=== PATIENT | female | born 1950 | race Caucasian/White ===

== ENCOUNTER 2020-12-15 08:00 | Outpatient (CLI) | payer MEDICARE, OTHER | END 2020-12-15 23:59 | disposition home or self-care (01) | LOC: LAB.R 08:00 | PROVIDERS: ATTEND Family Medicine | DX: U07.1 COVID-19 (principal) ==

== ENCOUNTER 2021-01-20 11:10 | Observation (INO) | payer MEDICARE, OTHER ==
--- OUTSIDE RECORDS SUMMARY | 2021-01-20 11:14 | EXTERNAL MEDICAL SUMMARY RPT | Continuity of Care Document ---
:1950 Demographics Phone Unavailable Preferred Language French Marital Status Unknown Muslim Affiliation Unknown Race Unknown Ethnic Group Unknown Author Organization [place] Address [address] [place] [address] Phone Care Team Providers Name Role Phone ELECTRICAL ENGINEERING TECHNOLOGIST Unavailable Unavailable Registrar Unavailable Unavailable RN REHABILITATION Unavailable Unavailable MD Unavailable Unavailable Garcia Unavailable Unavailable Allergies Encounters Medications date description facility [id number] Nitroglycerin 0.4 MG Sublingual Tablet [facility] [id number] [facility] All [id number] [facility] All [id number] [facility] All [id number] [facility] All [id number] [facility] All [id number] [facility] All [id number] [facility] All [id number] [facility] All [id number] [facility] All [id number] [facility] All [id number] [facility] All [id number] [facility] All [id number] [facility] All [id number] [facility] All [id number] [facility] All [id number] [facility] All [id number] [facility] All [id number] [facility] All [id number] [facility] All [id number] [facility] All [id number] [facility] All [id number] [facility] All [id number] [facility] All [id number] [facility] All Problems date description facility [id number] Total score? All [id number] Acute upper respiratory infection, unsp ecified All [id number] Never smoker All [id number] Cough All 34760714 Acute upper respiratory infections of u nspecified site All [id number] Details of drug misuse behavior All 10038447 Upper respiratory infection All 32327391 Tobacco smoking status NHIS All [id number] COVID19 Testing All 39333035 Alcohol use All Procedures date description facility [id number] [facility] Results test status date ordered by attending specimen wesly e _2019NCoV_COVID-19_Lab unknown [id number] unknown unknown unknown _Test_Result_Text_ COVID-19_REFERENCE_TES unknown [id number] unknown unknown unknown T T unknown [id number] unknown unknown unknown _2019NCoV_COVID-19_Lab unknown [id number] unknown unknown unknown _Test_Result_Text_ COVID-19_REFERENCE_TES unknown [id number] unknown unknown unknown T T unknown [id number] unknown unknown unknown facility observation status value reference units lab abnor mal line range code notes All _2019NCoV_CO unknown POSITIVE unknown _6659 unkno wn unknown VID-19_Lab_Te 97 st_Result_Tex t_ All COVID-19_REF unknown POSITIVE unknown COVID unkno wn unknown ERENCE_TEST 19.REF All T unknown POSITIVE unknown COVID unknown un known -19 All _2019NCoV_CO unknown POSITIVE unknown _6659 unkno wn unknown VID-19_Lab_Te 97 st_Result_Tex t_ All COVID-19_REF unknown POSITIVE unknown COVID unkno wn unknown ERENCE_TEST 19.REF All T unknown POSITIVE unknown COVID unknown un known -19 Vital Signs date measurement value source 20201215 weight_standard 198 lb 20201215 weight_metric 89.81 kg 20201215 temperature_standard 97.8 F 20201215 temperature_metric 36.56 C 20201215 respiration_rate 17 /min 20201215 height_standard 65 in 20201215 height_metric 165.1 cm 20201215 heart_rate 62 /min 20201215 heart_rate 61 /min 20201215 BP_systolic 138 mm[Hg] 72883970 BP_diastolic 80 mm[Hg] 20201215 BMI 33.07 kg/m2 20201215 weight_standard 198 lb 20201215 weight_metric 89.81 kg 20201215 temperature_standard 97.8 F 20201215 temperature_metric 36.56 C 20201215 respiration_rate 17 /min 20201215 height_standard 65 in 20201215 height_metric 165.1 cm 20201215 heart_rate 62 /min 20201215 heart_rate 61 /min 20201215 BP_systolic 138 mm[Hg] 28205102 BP_diastolic 80 mm[Hg] 20201215 BMI 33.07 kg/m2 20201215 weight_standard 198 lb 20201215 weight_metric 89.81 kg 20201215 temperature_standard 97.8 F 20201215 temperature_metric 36.56 C 20201215 respiration_rate 17 /min 20201215 height_standard 65 in 20201215 height_metric 165.1 cm 20201215 heart_rate 62 /min 20201215 heart_rate 61 /min 20201215 BP_systolic 138 mm[Hg] 28778699 BP_diastolic 80 mm[Hg] 20201215 BMI 33.07 kg/m2 20201215 weight_standard 198 lb 20201215 weight_metric 89.81 kg 20201215 temperature_standard 97.8 F 20201215 temperature_metric 36.56 C 20201215 respiration_rate 17 /min 20201215 height_standard 65 in 20201215 height_metric 165.1 cm 20201215 heart_rate 62 /min 20201215 heart_rate 61 /min 20201215 BP_systolic 138 mm[Hg] 20201215 BP_diastolic 80 mm[Hg] 20201215 BMI 33.07 kg/m2 20210113 weight_standard 181.99 lb 20210113 weight_metric 82.55 kg 20210113 temperature_standard 98.7 F 20210113 temperature_metric 37.06 C 20210113 respiration_rate 16 /min 20210113 height_standard 65 in 20210113 height_metric 165.1 cm 20210113 heart_rate 62 /min 20210113 BP_systolic 175 mm[Hg] 20210113 BP_diastolic 78 mm[Hg] 20210113 BMI 30.2 kg/m2
--- OUTSIDE RECORDS SUMMARY | 2021-01-20 11:16 | EXTERNAL MEDICAL SUMMARY RPT | Continuity of Care Document ---
:1950 Demographics Phone Unavailable Preferred Language Polish Marital Status Unknown Alevism Affiliation Unknown Race Unknown Ethnic Group Unknown Author Organization [place] Address [address] [place] [address] Phone Care Team Providers Name Role Phone Registrar Unavailable Unavailable MD Unavailable Unavailable REHABILITATION SERVICES COUNSELOR Unavailable Unavailable SHOE REPAIRMAN Unavailable Unavailable Garcia Unavailable Unavailable Allergies Encounters Medications date description facility [id number] Nitroglycerin 0.4 MG Sublingual Tablet [facility] [id number] [facility] All [id number] [facility] All [id number] [facility] All [id number] [facility] All [id number] [facility] All [id number] [facility] All [id number] [facility] All [id number] [facility] All [id number] ASP[facility] All [id number] [facility] All [id number] [facility] All [id number] AT[facility]VASTATIN [facility] All [id number] [facility] All [id number] AT[facility]VASTAT[facility] All [id number] ASPIR[facility] All [id number] ASP[facility] All [id number] [facility] All [id number] [facility] All [id number] [facility] All [id number] [facility]VASTAT[facility] All [id number] [facility] All [id number] [facility] All [id number] [facility] All [id number] [facility] All Problems date description facility 54272788 Total score? All 57797524 Acute upper respiratory infection, unsp ecified All 10058740 Never smoker All 19607247 Cough All 90075061 Acute upper respiratory infections of u nspecified site All 27062661 Details of drug misuse behavior All 87306976 Upper respiratory infection All 00069439 Tobacco smoking status NHIS All 69996851 COVID19 Testing All 35559780 Alcohol use All Procedures date description facility [id number] [facility] Results test status date ordered by attending specimen wesly e _2019NCoV_COVID-19_Lab unknown [id number] unknown unknown unknown _Test_Result_Text_ COVID-19_REFERENCE_TES unknown [id number] unknown unknown unknown T T unknown [id number] unknown unknown unknown _2019NCoV_COVID-19_Lab unknown [id number] unknown unknown unknown _Test_Result_Text_ COVID-19_REFERENCE_TES unknown [id number] unknown unknown unknown T T unknown [id number] unknown unknown unknown facility observation status value [...] heart_rate 61 /min 20201215 BP_systolic 138 mm[Hg] 86000025 BP_diastolic 80 mm[Hg] 20201215 BMI 33.07 kg/m2 20201215 weight_standard 198 lb 20201215 weight_metric 89.81 kg 20201215 temperature_standard 97.8 F 20201215 temperature_metric 36.56 C 20201215 respiration_rate 17 /min 20201215 height_standard 65 in 20201215 height_metric 165.1 cm 20201215 heart_rate 62 /min 20201215 heart_rate 61 /min 20201215 BP_systolic 138 mm[Hg] 70112701 BP_diastolic 80 mm[Hg] 20201215 BMI 33.07 kg/m2 20201215 weight_standard 198 lb 20201215 weight_metric 89.81 kg 20201215 temperature_standard 97.8 F 20201215 temperature_metric 36.56 C 20201215 respiration_rate 17 /min 20201215 height_standard 65 in 20201215 height_metric 165.1 cm 20201215 heart_rate 62 /min 20201215 heart_rate 61 /min 20201215 BP_systolic 138 mm[Hg] 61314765 BP_diastolic 80 mm[Hg] 20201215 BMI 33.07 kg/m2 [...]
[2021-01-20 12:07] LABS: BASOPHILS % (AUTO) 0.5 %; EOSINOPHILS # (AUTO) 0.1 10^3/uL (0.0-0.7); EOSINOPHILS % (AUTO) 0.9 %; HCT - HEMATOCRIT 42.5 % (37.0-47.0); HGB - HEMOGLOBIN 13.8 g/dL (12.0-16.0); LYMPHOCYTES # (AUTO) 1.2 10^3/uL (1.5-3.5); MEAN CORPUSCULAR HEMOGLOBIN 31.6 pg (27.0-31.0); MEAN CORPUSCULAR HGB CONC 32.5 g/dL (32.0-36.0); MEAN CORPUSCULAR VOLUME 97.3 fL (81.0-99.0); MEAN PLATELET VOLUME 10.4 fL (7.9-10.8); MONOCYTES # (AUTO) 0.8 10^3/uL (0.0-1.0); MONOCYTES % (AUTO) 9.8 %; NEUTROPHILS # (AUTO) 5.9 10^3/uL (1.5-6.6); NEUTROPHILS % (AUTO) 73.5 %; PLT - PLATELET COUNT 209 10^3/uL (130-450); RED BLOOD COUNT 4.37 10^6/uL (4.20-5.40); RED CELL DISTRIBUTION WIDTH 12.4 % (12.0-15.0)
[2021-01-20 12:26] LABS: ALBUMIN 4.2 g/dL (3.2-5.5); ALBUMIN/GLOBULIN RATIO 1.3 (1.0-2.2); BILIRUBIN,TOTAL 0.6 mg/dL (0.2-1.0); CALCIUM 9.4 mg/dL (8.5-10.3); CREATININE 0.8 mg/dL (0.4-1.0); POTASSIUM 3.8 mmol/L (3.5-5.0); TOTAL PROTEIN 7.4 g/dL (6.7-8.2)
--- NOTE | 2021-01-20 12:31 | XRAY Report ---
PROCEDURE: Chest 1 View X-Ray INDICATIONS: Chest Pain TECHNIQUE: One view of the chest was acquired. COMPARISON: None FINDINGS: Surgical changes and devices: None. Lungs and pleura: No pleural effusions or pneumothorax. Lungs are clear. Mediastinum: Mediastinal contours appear normal. Heart size is normal. Bones and chest wall: No suspicious bony lesions. Overlying soft tissues appear unremarkable. IMPRESSION: No acute cardiopulmonary findings Reviewed by: Rocco Cabrales MD on 01/20/2021 11:30 AM SUSIE Approved by: Rocco Cabrales MD on 01/20/2021 11:30 AM SUSIE Station ID: [id number]
--- NOTE | 2021-01-20 12:32 | ED Physician Documentation ---
History of Present Illness - Stated complaint Stated Complaint: +C CHEST PX - Chief complaint Chief Complaint: Cardiac - Additonal information Additional information: 70-year-old female presents the emergency department for evaluation of ex ertional chest pain that improves with rest and nitroglycerin. She does have a history of atrial fibrillation status post ablation rate controlled on Cardizem and anticoagulated. She reports that on December 15 she tested positive for COVID- 19. Since then she has been having exertional chest pain that improves with rest or taking her nitroglycerin. She did go to [facility] on 13 January for this chest pain. Unfortunately because she continued to test positive for COVID-19 they could not admit her to the hospital for a stress test and she was advised outpatient cardiac follow-up. Since being discharged home she continues to have the exertional chest pain. She does see a chiropractor assistant through [facility] in [place] and is scheduled for outpatient testing on the first week of January however she is concerned she may be unable to get that testing with the continuation of the Covid positive test results. In the emergency department she appears well and denies chest pain or shortness of breath at this time. Chest pain is pressure-like does not radiate no nausea vomiting or jaw pain. Review of Systems Constitutional: denies: Fever, Chills Eyes: reports: Reviewed and negative Ears: reports: Reviewed and negative Nose: reports: Reviewed and negative Throat: reports: Reviewed and negative Cardiac: reports: Chest pain / pressure. denies: Palpitations, Pedal edema, Calf pain Respiratory: denies: Dyspnea, Cough GI: reports: Reviewed and negative : reports: Reviewed and negative Skin: denies: Rash, Lesions Musculoskeletal: reports: Reviewed and negative Neurologic: reports: Reviewed and negative PD PAST MEDICAL HISTORY - Present Medications Home Medications: Ambulatory Orders Medication Instructions Recorded Confirmed Atorvastatin [Lipitor] 1 tab PO DAILY 01/20/21 01/20/21 Diltiazem HCl [Diltiazem 12Hr ER] 120 mg PO DAILY 01/20/21 01/20/21 Isosorbide Mononitrate ER [Imdur] 30 mg PO DAILY #30 tablet 01/20/21 Nitroglycerin [Nitrostat] 0.4 mg SL Q5MIN PRN 01/20/21 01/20/21 Nitroglycerin [Nitrostat] 0.4 mg SL Q5MIN PRN #30 tablet 01/20/21 Rivaroxaban [Xarelto] 20 mg PO DAILY 01/20/21 01/20/21 - Allergies Allergies/Adverse Reactions: Allergies Allergy/AdvReac Type Severity Reaction Status Date / Time amoxicillin Allergy Rash Verified 01/20/21 11:55 epinephrine Allergy Unknown Verified 01/20/21 11:57 erythromycin base Allergy Rash Verified 01/20/21 11:55 procaine [From Novocain] Allergy Unknown Verified 01/20/21 11:57 Sulfa (Sulfonamide Allergy Hives Verified 01/20/21 11:56 Antibiotics) PD ED PE EXPANDED - General General: Alert, No acute distress - Cardiac Cardiac: Regular Rate, Radial strong equal, Pedal strong equal, Cap refill < 2 sec. No: Murmur Present - Respiratory Respiratory: Clear to ausultation jamil. No: Distress, Labored - Abdomen Abdomen: Normal Bowel sounds. No: Tender to palpation - Derm Derm: Normal color, Warm and dry. No: Petecchiae, Purpura - Extremities Extremities: Normal. No: Deformity, Tenderness - Neuro Neuro: Alert and Oriented X 3, CNII-XII intact - GCS Eye Opening: Spontaneous Motor: Obeys Commands Verbal: Oriented Total: 15 - Psych Psych: Normal Results - Vitals Vitals: Vital Signs - 24 hr 01/20/21 01/20/21 01/20/21 11:46 13:52 15:00 Temperature 35.7 C L 36.7 C 36.5 C Heart Rate 61 57 L 60 Respiratory 15 19 12 Rate Blood Pressure 158/77 H 141/75 H 135/76 H O2 Saturation 99 99 100 Oxygen O2 Source Room air - EKG (time done) 1136 Rate: Rate (enter#) (62) Rhythm: NSR [place]: Normal Intervals: Normal NM QRS: Normal Ischemia: Normal ST segments Compare to prior EKG: Old EKG unavailable Computer interpretation: Agree with computer - Labs Labs: Laboratory Tests 01/20/21 01/20/21 01/20/21 11:45 11:45 11:45 WBC 8.0 RBC 4.37 Hgb 13.8 Hct 42.5 MCV 97.3 MCH 31.6 H MCHC 32.5 RDW 12.4 Plt Count 209 MPV 10.4 Neut # (Auto) 5.9 Lymph # (Auto) 1.2 L [place] # (Auto) 0.8 Eos # (Auto) 0.1 Baso # (Auto) 0.0 Absolute Nucleated RBC 0.00 Nucleated RBC % 0.0 Sodium 138 Potassium 3.8 Chloride 106 Carbon Dioxide 27 Anion Gap 5.0 L BUN 14 Creatinine 0.8 Estimated GFR (MDRD) 71 L Glucose 109 H Calcium 9.4 Total Bilirubin 0.6 AST 26 ALT 29 Alkaline Phosphatase 83 Troponin I High Sens 3.7 Total Protein 7.4 Albumin 4.2 Globulin 3.2 Albumin/Globulin Ratio 1.3 Lipase 32 Nasal Adenovirus (PCR) Nasal B. parapertussis DNA (PCR) Nasal Coronavir 229E PCR Nasal Coronavir HKU1 PCR Nasal Coronavir NL63 PCR Nasal Coronavir OC43 PCR Nasal Enterovir/Rhinovir PCR Nasal Influenza B PCR Nasal Influenza A PCR Nasal Parainfluen 1 PCR Nasal Parainfluen 2 PCR Nasal Parainfluen 3 PCR Nasal Parainfluen 4 PCR Nasal RSV (PCR) Nasal B.pertussis DNA PCR Nasal C.pneumoniae (PCR) Wilber Human Metapneumo PCR Nasal M.pneumoniae (PCR) Nasal SARS-CoV-2 (PCR) 01/20/21 11:45 WBC RBC Hgb Hct MCV MCH MCHC RDW Plt Count MPV Neut # (Auto) Lymph # (Auto) [place] # (Auto) Eos # (Auto) Baso # (Auto) Absolute Nucleated RBC Nucleated RBC % Sodium Potassium Chloride Carbon Dioxide Anion Gap BUN Creatinine Estimated GFR (MDRD) Glucose Calcium Total Bilirubin AST ALT Alkaline Phosphatase Troponin I High Sens Total Protein Albumin Globulin Albumin/Globulin Ratio Lipase Nasal Adenovirus (PCR) NOT DETECTED Nasal B. parapertussis DNA (PCR) NOT DETECTED Nasal Coronavir 229E PCR NOT DETECTED Nasal Coronavir HKU1 PCR NOT DETECTED Nasal Coronavir NL63 PCR NOT DETECTED Nasal Coronavir OC43 PCR NOT DETECTED Nasal Enterovir/Rhinovir PCR NOT DETECTED Nasal Influenza B PCR NOT DETECTED Nasal Influenza A PCR NOT DETECTED Nasal Parainfluen 1 PCR NOT DETECTED Nasal Parainfluen 2 PCR NOT DETECTED Nasal Parainfluen 3 PCR NOT DETECTED Nasal Parainfluen 4 PCR NOT DETECTED Nasal RSV (PCR) NOT DETECTED Nasal B.pertussis DNA PCR NOT DETECTED Nasal C.pneumoniae (PCR) NOT DETECTED Wilber Human Metapneumo PCR NOT DETECTED Nasal M.pneumoniae (PCR) NOT DETECTED Nasal SARS-CoV-2 (PCR) NOT DETECTED - Rads (name of study) CXR Radiology: Final report received (No acute cardiopulmonary process.) PD MEDICAL DECISION MAKING - ED course Complexity details: reviewed results, re-evaluated patient, considered di fferential, d/w patient ED course: 70-year-old female who has a history of recent COVID-19, As well as atrial fibrillation status post ablation anticoagulated. infection in late November comes to the emergency department with exertional chest pain that is resolved with rest and nitroglycerin. She was seen at [facility] 5 days ago for similar but due to a positive COVID-19 screen they were unable to complete the stress test. She comes to our emergency department today with the persistence of Exertional chest pain. Her screening EKG is nonischemic. High-sensitivity troponin is negative. We have rescreened her for COVID-19 today and the test is negative. 1330 I discussed this case with our on-call hospitalist Dr. Gold who would like to do a stress test through the emergency department instead of admitting to an observation status. Patient had decaf coffee this morning and takes her Cardizem at night. 1500: Patient has been seen in the emergency department by Dr. Gold. Unfortunately due to scheduling availability we are not able to complete the echocardiogram or stress test thru the ED today. Dr. oGld ultimately did speak with the on-call chiropractor assistant through [facility] in [place] who felt that the echocardiogram could be done on an outpatient but more emergent basis. Therefore Dr. Smith's office will be calling the patient to schedule an emergent stress test. He did recommend that the patient be given Imdur in the emergency department and discharged with a prescription for Imdur. The plan and findings were discussed with the patient and she is in agreement. I have advised her to avoid walking her dog until she has the stress test echocardiogram as the chest pain is exertional. She is to continue to take the nitroglycerin for chest pain but will return to the ER if not relieved. Emergent return precautions were otherwise discussed. Departure - Departure Disposition: 01 Home, Self Care Clinical Impression: Angina of effort Chest pain Qualifiers: Chest pain type: chest pain due to myocardial ischemia Ischemic chest pain type: other angina pectoris type Qualified Code(s): I20.8 - Other forms of angina pectoris Condition: Stable Record reviewed to determine appropriate education?: Yes Instructions: Nitroglycerin Fast Act Dc Follow-Up: Parish Garcia MD [Primary Care Provider] - Prescriptions: Nitroglycerin [Nitrostat] 0.4 mg SL Q5MIN PRN #30 tablet PRN Reason: Chest Pain Isosorbide Mononitrate ER [Imdur] 30 mg PO DAILY #30 tablet Comments: Janna you are seen in the emergency department today for chest pain that gets worse with exertion. This is called angina. You do need to have an outpatient stress test and echocardiogram. Unfortunately we are unable to provide that test for you today in the emergency department. We have spoken with your card iology group at [facility] in [place]. They should be contacting you shortly to schedule you for a more emergent outpatient stress test and echocardiogram. Your chiropractor assistant would like you started on Imdur. This is a medication that often helps dilate the vessels in the heart as well as reduce chest pain. Your first dose was given today in the emergency department. Please fill the prescr iption and begin taking tomorrow as otherwise directed. I have also represcribed your nitroglycerin. If you develop chest pain it is okay to take the nitroglycerin every 5 to 10 minutes for a total of 3 doses. If chest pain is not relieved with the nitroglycerin return immediately to the ER.
[2021-01-20 13:22] LABS: B. PARAPERTUSSIS- RESP PCR PAN NOT DETECTED; B. PERTUSSIS- RESP PCR PANEL NOT DETECTED; C. PNEUMONIAE- RESP PCR PANEL NOT DETECTED; CORONAVIRUS 229E-RESP PCR NOT DETECTED; CORONAVIRUS HKU1-RESP PCR NOT DETECTED; CORONAVIRUS NL63-RESP PCR NOT DETECTED; CORONAVIRUS OC43-RESP PCR NOT DETECTED; HUMAN METAPNEUMOVIRUS NOT DETECTED; INFLUENZA A- RESP PCR PANEL NOT DETECTED; INFLUENZA B - RESP PCR PANEL NOT DETECTED; M. PNEUMONIAE- RESP PCR PANEL NOT DETECTED; PARAINFLUENZA VIRUS 1 NOT DETECTED; PARAINFLUENZA VIRUS 2 NOT DETECTED; PARAINFLUENZA VIRUS 3 NOT DETECTED; PARAINFLUENZA VIRUS 4 NOT DETECTED; RHINOVIRUS/ENTEROVIRUS NOT DETECTED; RSV- RESP PCR PANEL NOT DETECTED; SARS-CoV-2 -RESP PCR PANEL NOT DETECTED
[2021-01-20] MEDS ORDERED: ISOSORBIDE MONONITRATE ER 30 MG TABLET PO STA (15:35)
--- NOTE | 2021-01-20 16:18 | CONSULTATION NOTE ---
Referring Provider Name of Referring Provider:: SUDHA Laurent Consult Date: 01/20/21 History - Past Medical History Cardiovascular: reports: Atrial fibrillation, Arrhythmia - Past Surgical History /MACHINE RIVETER: reports: Hysterectomy Cardiovascular: reports: Other Meds/Allgy - Home Medications Home Medications: Ambulatory Orders Medication Instructions Recorded Confirmed Atorvastatin [Lipitor] 1 tab PO DAILY 01/20/21 01/20/21 Diltiazem HCl [Diltiazem 12Hr ER] 120 mg PO DAILY 01/20/21 01/20/21 Isosorbide Mononitrate ER [Imdur] 30 mg PO DAILY #30 tablet 01/20/21 Nitroglycerin [Nitrostat] 0.4 mg SL Q5MIN PRN 01/20/21 01/20/21 Nitroglycerin [Nitrostat] 0.4 mg SL Q5MIN PRN #30 tablet 01/20/21 Rivaroxaban [Xarelto] 20 mg PO DAILY 01/20/21 01/20/21 - Allergies Allergies/Adverse Reactions: Allergies Allergy/AdvReac Type Severity Reaction Status Date / Time amoxicillin Allergy Rash Verified 01/20/21 11:55 epinephrine Allergy Unknown Verified 01/20/21 11:57 erythromycin base Allergy Rash Verified 01/20/21 11:55 procaine [From Novocain] Allergy Unknown Verified 01/20/21 11:57 Sulfa (Sulfonamide Allergy Hives Verified 01/20/21 11:56 Antibiotics) Exam - Vital Signs Vital Signs: Vital Signs x48h Temp Pulse Resp BP Pulse Ox 01/20/21 16:08 36.7 C 63 15 139/74 H 100 01/20/21 15:00 36.5 C 60 12 135/76 H 100 01/20/21 13:52 36.7 C 57 L 19 141/75 H 99 01/20/21 11:46 35.7 C L 61 15 158/77 H 99 Conclusion/Plan - Lab Results Fish Bones: 01/20/21 11:45 01/20/21 11:45
[2021-01-20] MEDS ORDERED: ACETAMINOPHEN 325 MG TABLET PO PRN (16:20)
[2021-01-20] MEDS ORDERED: ONDANSETRON 4 MG/2 ML VIAL IVP PRN (16:20)
[2021-01-20] MEDS ORDERED: oxyCODONE 5 MG TABLET PO PRN (16:20)
[2021-01-20] MEDS ORDERED: ONDANSETRON ODT 4 MG TABLET TL PRN (16:20)
[2021-01-20] MEDS ORDERED: SODIUM CHLORIDE FLUSH 0.9% 10 ML SYRINGE IVP PRN (16:20)
[2021-01-20] MEDS ORDERED: NITROGLYCERIN SL 0.4 MG TABLET SL PRN (16:26)
--- NOTE | 2021-01-20 16:29 | HISTORY & PHYSICAL EXAMINATION ---
Chief Complaint - Chief Complaint Chief Complaint: exertional chest pain History of Present Illness - Admitted From Admitted From:: home - History Obtained From Records Reviewed: [facility] History obtained from: Patient Exam Limitations: none - History of Present Illness HPI Comment/Other: She is a 70-year-old female whose previous cardiology history is that of an ablated atrial fibrillation. She is followed by Dr. Osuna at [facility] cardiology for EPS. For years he has been trying to get her on Xarelto and she is refused. She also reluctantly takes Cardizem. He explained to her that he is doing it more for blood pressure control than rate control and she has been taking it nightly. She became ill with Covid December 11. Was symptomatic with severe cough, weakness, fatigue, anosmia but started clearing by December 15. She could really feel the difference when the fever went away. By December 21 she felt good enough that she mowed her entire back pasture. This was with a push mower in the grass was knee-high. She was exhausted at the end of it but was very satisfied at completing this job because the grass had been "staring at me in the face" the whole time she was sick. On December 23 she started feeling diaphoresis, waves of weakness, and a very fast heart rate almost like she was back in atrial fibrillation. She had several bouts of these episodes over the first part of December. She called Dr. Osuna's office and Dr. Osuna scheduled her for follow-up in the first week of January. She was also now worried about her risk of stroke since her "atrial fibrillation may be coming back" and she acquiesced to starting Xarelto and has been on Xarelto since then. On January 13 she then started having substernal chest pain with exertion. If she rested, or stopped walking the dog, her chest pain went away. It alarmed her that she drove to [facility] where she was evaluated for [place]. Troponins and EKG were reportedly normal (this is per our ER provider telling me). The patient was supposed to get a stress test but because she was still Covid positive, they opted to discharge her and have her follow-up with an outpatient stress test with her train engineer. She tells me that she had a stress test sometime back in 2016 that was normal. This was not her for stress test. She is never had a coronary angiogram but she recalls an MRI of the heart but she cannot remember what those results were. She only remembers the ablation for sure. For a few days she felt fine. But the chest pain is come back. Only with exertion and made worse with things such as climbing up a hill with walking her dog. Palpitations are present. No diaphoresis, no nausea, no edema, no orthopnea. No fevers or sweats. She came back to the emergency room, this time to our hospital. We evaluated her and I saw her in consultation. I had spoken to cardiology on-call, and they were comfortable with scheduling this patient with a stress test on January 31. To start her on Imdur, and the patient could be discharged. However when nurse practitioner Mehran went back to speak to the patient, the patient became tearful. She had already been called by [facility] cardiology office and they had scheduled her stress test for January 31, and she felt that January 31 was "too far away". That something was "really wrong". She did not feel safe and was very anxious about going home. As such the patient is now placed in observation for another set of cardiac enzymes and to get a stress test tomorrow morning. 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 She had a history of aortic stenosis that she declined treatment for. Had a stroke, possible [place]. She also had mouth cancer of some type before she . Dad at age 82 of mesenteric ischemia. 5 brothers and sisters. Between them all they have diabetes, hypertension, breast cancer. 3 children. One with Gerry's, 1 with drug addiction problems Living arrangement: At home Living Situation: With spouse/s.o. Social History Notes: She states that she was never a smoker. Rarely drinks alcohol. 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 They live in their own home. - Substance History Use: Uses substance without health or social issues: NONE Abuse: Recurrent use of substance despite neg consequences: NONE Dependence: Experiences withdrawal or developed tolerances: NONE - POLST Patient has POLST: No POLST Status: Full Code Meds/Allgy - Home Medications Home Medications: Ambulatory Orders Medication Instructions Recorded Confirmed Atorvastatin [Lipitor] 20 mg PO DAILY 01/20/21 01/20/21 Diltiazem HCl [Diltiazem 12Hr ER] 120 mg PO DAILY 01/20/21 01/20/21 Isosorbide Mononitrate ER [Imdur] 30 mg PO DAILY #30 tablet 01/20/21 Nitroglycerin [Nitrostat] 0.4 mg SL Q5MIN PRN 01/20/21 01/20/21 Nitroglycerin [Nitrostat] 0.4 mg SL Q5MIN PRN #30 tablet 01/20/21 Rivaroxaban [Xarelto] 20 mg PO DAILY 01/20/21 01/20/21 - Allergies Allergies/Adverse Reactions: Allergies Allergy/AdvReac Type Severity Reaction Status Date / Time amoxicillin Allergy Rash Verified 01/20/21 11:55 epinephrine Allergy Unknown Verified 01/20/21 11:57 erythromycin base Allergy Rash Verified 01/20/21 11:55 procaine [From Novocain] Allergy Unknown Verified 01/20/21 11:57 Sulfa (Sulfonamide Allergy Hives Verified 01/20/21 11:56 Antibiotics) Review of Systems - Constitutional Constitutional: reports: Fatigue, Weakness. denies: Fever, Chills, Malaise, Poor appetite, Diaphoresis, Night sweats - Eyes Eyes: denies: Pain, Vision loss - Ears, Nose & Throat Ears, Nose & Throat: denies: Ear pain, Hearing loss, Sore throat, Hoarseness - Cardiovascular Cariovascular: reports: Irregular heart rate, Palpitations, Chest pain, Decr. exercise tolerance. denies: Edema - Respiratory Respiratory: reports: Cough, SOB with exertion. denies: Sputum production, Wheezing, Snoring, Hemoptysis - Gastrointestinal Gastrointestinal: denies: Abdominal pain, Abdominal distention, Constipation, Diarrhea, Change in bowel habits - Genitourinary Genitourinary: denies: Dysuria, Frequency, Urgency, Hematuria - Musculoskeletal Musculoskeletal: reports: Muscle aches, Joint pain. denies: Muscle pain, Back pain - Integumentary Integumentary: denies: Rash, Pruritis, Lesions, Dryness - Neurological Neurological: reports: General weakness. denies: Focal weakness, Headache, Dizziness, Memory problems, Pre-existing deficit - Psychiatric Psychiatric: reports: Depression (She used to take Prozac but stopped it about 2 years ago.), Anxiety. denies: Suicidal, Delusions - Endocrine Endocrine: denies: Polyuria, Polydypsia, Polyphagia - Hematologic/Lymphatic Hematologic/Lymphatic: denies: Anemia, Bruising, Petechiae Prior Level of Functionality: Independent with activities of daily living.. She drives a car, pays bills, mows lawn, cleans her house, does laundry. Exam - Vital Signs Reviewed Vital Signs: Yes Vital Signs: Vital Signs x48h Temp Pulse Resp BP Pulse Ox 01/20/21 16:08 36.7 C 63 15 139/74 H 100 01/20/21 15:00 36.5 C 60 12 135/76 H 100 01/20/21 13:52 36.7 C 57 L 19 141/75 H 99 01/20/21 11:46 35.7 C L 61 15 158/77 H 99 - Physical Exam General Appearance: positive: No acute distress, Alert, Other (Slightly fatigued appearing, pale female who looks her stated age. Laying comfortably in bed without any current chest pain) Eyes Bilateral: positive: PERRL, EOMI ENT: positive: No signs of dehydration Neck: positive: No JVD. negative: Stiff neck Respiratory: positive: No respiratory distress. negative: Wheezes, Rales, Rhonchi Cardiovascular: positive: Regular rate & rhythm. negative: Gallop/S4, Friction rub Peripheral Pulses: positive: 1+ Abdomen: positive: Non-tender, No organomegaly, Nml bowel sounds, No distention Skin: positive: No rash, Warm, Dry Extremities: positive: Full ROM, No pedal edema Neurologic/Psychiatric: positive: Oriented x3, CN's nml (2-12), Motor nml, Sensation nml Conclusion/Plan - Problem List (1) Angina of effort Conclusion/Plan: Risk factors include age, hypertension, hyperlipidemia. Negative family history, non-smoker, and she does describe herself as a prediabetic. In a post Covid patient, pericarditis or myocarditis is possible. However her troponins are completely normal. Plan: Observation status Serial cardiac enzymes Resume the Imdur recommended by cardiology Continue sublingual nitroglycerin ESR with her next troponin level Deshawn protocol nuclear medicine stress test in the morning Echocardiogram in the morning. (2) History of atrial fibrillation Conclusion/Plan: We will hold Cardizem tonight. Resume after her stress test tomorrow. At this time Cardizem is being given for hypertension rather than rate control. She will have her Xarelto resumed. - Lab Results Lab results reviewed: Yes Fish Bones: 01/20/21 11:45 01/20/21 11:45 - Diagnostic Imaging Results Diagnostic Imaging Results: positive: Final report reviewed Diagnostic Imaging Results Comments: No acute cardiopulmonary findings - EKG Results EKG Interpreted Independently: No Core Measures - Anticipated LOS I expect patient to be DC'd or transferred within 96 hours.: Yes - DVT/VTE - Prophylaxis VTE/DVT Device ordered at admit?: Yes
--- OUTSIDE RECORDS SUMMARY | 2021-01-20 16:34 | EXTERNAL MEDICAL SUMMARY RPT | Continuity of Care Document ---
:1950 Demographics Phone Unavailable Preferred Language Lithuanian Marital Status Unknown Rastafarian Affiliation Unknown Race Unknown Ethnic Group Unknown Author Organization [facility] Address [address] [place] [address] Phone Care Team Providers Name Role Phone SOCIAL WORK THERAPIST Unavailable Unavailable Registrar Unavailable Unavailable IGNITION MECHANIC Unavailable Unavailable MD Unavailable Unavailable Garcia Unavailable Unavailable Allergies Encounters Medications date description facility [id number] Nitroglycerin 0.[address] [facility] [id number] [facility] All [id number] [facility] All [id number] [facility] All [id number] [facility] All [id number] [facility] All [id number] [facility] All [id number] [facility] All [id number] [facility] All [id number] [facility] All [id number] [facility] All [id number] [facility] All [id number] [facility] All [id number] [facility] All [id number] [facility] All [id number] [facility] All [id number] [facility] All [id number] [facility] All [id number] [facility] All [id number] [facility] All [id number] [facility] All [id number] [facility] All [id number] [facility] All [id number] [facility] All [id number] [facility] All Problems date description facility [id number] Total score? All [id number] Acute upper respiratory infection, unsp ecified All [id number] Never smoker All [id number] Cough All 81530903 Acute upper respiratory infections of u nspecified site All [id number] Details of drug misuse behavior All [id number] Upper respiratory infection All [id number] Tobacco smoking status NHIS All [id number] COVID19 Testing All [id number] Alcohol use All Procedures date description facility [id number] [facility] Results test status date ordered by attending specimen wesly e _2019NCoV_COVID-19_Lab unknown [id number] unknown unknown unknown _Test_Result_Text_ COVID-19_REFERENCE_TES unknown [id number] unknown unknown unknown T T unknown [id number] unknown unknown unknown _2019NCoV_COVID-19_Lab unknown [id number] unknown unknown unknown _Test_Result_Text_ COVID-19_REFERENCE_TES unknown [id number] unknown unknown unknown T T unknown [id number] unknown unknown unknown facility observation status value [...] heart_rate 61 /min 20201215 BP_systolic 138 mm[Hg] 15010257 BP_diastolic 80 mm[Hg] 20201215 BMI 33.07 kg/m2 20201215 weight_standard 198 lb 20201215 weight_metric 89.81 kg 20201215 temperature_standard 97.8 F 20201215 temperature_metric 36.56 C 20201215 respiration_rate 17 /min 20201215 height_standard 65 in 20201215 height_metric 165.1 cm 20201215 heart_rate 62 /min 20201215 heart_rate 61 /min 20201215 BP_systolic 138 mm[Hg] 59166943 BP_diastolic 80 mm[Hg] 20201215 BMI 33.07 kg/m2 20201215 weight_standard 198 lb 20201215 weight_metric 89.81 kg 20201215 temperature_standard 97.8 F 20201215 temperature_metric 36.56 C 20201215 respiration_rate 17 /min 20201215 height_standard 65 in 20201215 height_metric 165.1 cm 20201215 heart_rate 62 /min 20201215 heart_rate 61 /min 20201215 BP_systolic 138 mm[Hg] 15124810 BP_diastolic 80 mm[Hg] 20201215 BMI 33.07 kg/m2 [...]
[2021-01-20] MEDS ORDERED: RIVAROXABAN 10 MG TABLET PO SCH (17:00)
[2021-01-20] MEDS: SODIUM CHLORIDE FLUSH 0.9% 10 ML SYRINGE IVP SCH (17:13)
[2021-01-20] MEDS ORDERED: ATORVASTATIN 10 MG TABLET PO SCH (21:00)
[2021-01-21] MEDS: SODIUM CHLORIDE FLUSH 0.9% 10 ML SYRINGE IVP SCH ×2 (07:44→09:01)
[2021-01-21] MEDS ORDERED: ISOSORBIDE MONONITRATE ER 30 MG TABLET PO SCH (09:00)
--- NOTE | 2021-01-21 11:54 | PHARMACY PROGRESS NOTE ---
- Best Possible Medication History Admit Date and Time: 01/20/21 1620 Processed by: Nursing Medication History completed: Yes Patient Interview: Completed (MED REC COMPLETED BY NURSING) As the person ultimately responsible for medication therapy, providers are able to order a medication from an existing home medication list in [facility] via the "Reconcile Routine" prior to Confirmation of that medication by biomedical equipment support specialist. Such practice is discouraged except when the physician, in their clinical judgment, deems that a medical need exists for a medication without regard to previous use.
--- NOTE | 2021-01-21 12:38 | CARDIAC PROCEDURE NOTE ---
Stress Test Report Service Date: 01/21/21 Service Time: 11:30 Ordering Provider: Dyana Gold MD Indication for Test: chest pain with exertion Significant Medical History: She is a 70-year-old female whose previous cardiology history is that of an ablated atrial fibrillation. She is followed by Dr. Osuna at [facility] cardiology for EPS. For years he has been trying to get her on Xarelto and she is refused. She also reluctantly takes Cardizem. He explained to her that he is doing it more for blood pressure control than rate control and she has been taking it nightly. She became ill with Covid December 11. Was symptomatic with s evere cough, weakness, fatigue, anosmia but started clearing by December 15. She could really feel the difference when the fever went away. By December 21 she felt good enough that she mowed her entire back pasture. This was with a push mower in the grass was knee-high. She was exhausted at the end of it but was very satisfied at completing this job because the grass had been "staring at me in the face" the whole time she was sick. On December 23 she started feeling diaphoresis, waves of weakness, and a very fast heart rate almost like she was back in atrial fibrillation. She had several bouts of these episodes over the first part of December. She called Dr. Osuna's office and Dr. Osuna scheduled her for follow-up in the first week of January. She was also now worried about her risk of stroke since her "atrial fibrillation may be coming back" and she acquiesced to starting Xarelto and has been on Xarelto since then. On January 13 she then started having substernal chest pain with exertion. If she rested, or stopped walking the dog, her chest pain went away. It alarmed her that she drove to [facility] where she was evaluated for [place]. Troponins and EKG were reportedly normal (this is per our ER provider telling me). The patient was supposed to get a stress test but because she was still Covid positive, they opted to discharge her and have her follow-up with an outpatient stress test with her senior j2ee developer. She tells me that she had a stress test sometime back in 2016 that was normal. This was not her for stress test. She is never had a coronary angiogram but she recalls an MRI of the heart but she cannot remember what those results were. She only remembers the ablation for sure. For a few days she felt fine. But the chest pain is come back. Only with exertion and made worse with things such as climbing up a hill with walking her dog. Palpitations are present. No diaphoresis, no nausea, no edema, no orthopnea. No fevers or sweats. She came back to the emergency room, this time to our hospital. We evaluated her and I saw her in consultation. I had spoken to cardiology on-call, and they were comfortable with scheduling this patient with a stress test on January 31. To start her on Imdur, and the patient could be discharged. However when nurse practitioner Mehran went back to speak to the patient, the patient became tearful. She had already been called by [facility] cardiology office and they had scheduled her stress test for January 31, and she felt that January 31 was "too far away". That something was "really wrong". She did not feel safe and was very anxious about going home. . Cardiac Risk Factors: age, HTN, HPL Type of Stress Test: ETT with Myocardial Perfusion Imaging Procedure: The patient performed a treadmill exercise using a Deshawn protocol and completed 3 minutes and 55 seconds. She completed an estimated workload of 5.74 metabolic equivalents. The test was terminated due to shortness of breath and her legs feeling "wobbly". The heart rate was 56 at baseline and increased to 169 with peak exercise which was 113% of maximum predicted heart rate. The resting blood pressure was 107/57. She increased to 168/71 which is a normal hypertensive response to exercise. The patient had symptoms of fatigue in her legs, and had shortness of breath but no chest pain that was similar to the chest pain that brought her into the hospital. The resting EKG demonstrated ST depression of -0.04 in the inferolateral leads. Sinus rhythm. During stress, this was further depressed -0.10. She has some ST elevation change in lead V2 to +0.14. However these were nondiagnostic for ischemia. Overall impression is a patient who is deconditioned and maximum heart rate was achieved almost instantly. In recovery she was 113 bpm after 2 minutes. Did not achieve full baseline until after 3 minutes. She had 1 random PVC in recovery. This is a good effort on her part, and at this time stress EKG is not diagnostic for ischemia. Myocardial perfusion imaging followed and was dictated by [facility]. She has no reversible or fixed defects. Her ejection fraction is normal. Good exercise effort per the nuclear medicine imaging. Summary: Although the patient is having exertional angina, and baseline EKG is slightly abnormal with ST depression, her exercise stress test is negative for diagnosed ischemia. And myocardial perfusion imaging are normal. She has poor exercise tolerance after having suffered COVID-19.
--- NOTE | 2021-01-21 14:42 | Nuclear Medicine Report ---
PROCEDURE: Rest and exercise myocardial perfusion SPECT with gated imaging and ejection fraction INDICATIONS: angina RADIOPHARMACEUTICAL: mCi Tc-99m Myoview IV at rest and mCi Tc-99m Myoview IV at peak exercis e. [id number] was performed. TECHNIQUE: Radiopharmaceutical was injected at peak stress test, and also at rest. SPECT images wer e obtained. SPECT myocardial perfusion images were displayed in short axis, horizontal long axis, an d vertical long axis views. Gated images were reviewed using GyftQUANT software. COMPARISON: None available. CARDIAC STRESS: A standard Deshawn treadmill exercise tolerance test was performed by the patient under the supervision of an attending staff. The patient exercised for 3 minutes and 55 seconds; functional aerobic impai rment (CARMELLA) is 29%. Hemodynamic data: There is normal blood pressure and heart rate response to exercise stress. Patien t achieved 113% of maximum predicted heart rate at peak exercise. Symptoms: Patient denied chest pain during exercise. EKG: No diagnostic EKG changes of ischemia; no ectopy. FINDINGS: Raw data: There is good myocardial labeling by radiotracer. No significant motion artifacts. Lung- to-heart ratio is 3.1 (normal is less than 0.46 for tetrafosmin tracer). Left ventricle function: Gated images demonstrate normal left ventricle wall thickening. No segment al wall motion abnormality. No transient ischemic dilation; TID is 0.86 (normal less than 1.30). Th e left ventricle resting end-diastolic volume is 49 mL. Left ventricle stress ejection fraction is 9 1%; normal values are above 45%. Myocardial perfusion: There is normal distribution of activity in the left and right ventricular brenda cardium. No fixed or reversible perfusion defects. IMPRESSION: 1. Normal myocardial perfusion study with no fixed or reversible perfusion defects. 2. Normal left ventricular function with no segmental wall motion abnormalities and normal stress LVE F 91%. 3. Good exercise capacity but functional aerobic impairment of 29%. PQRS ATTESTATIONS: Measure 322 - Is this imaging test primarily performed on a low-risk surgery patient for preoperative evaluation within 30 days preceding their low-risk non-cardiac surgery? Low-risk surgery is defined as cardiac or myocardial infarction less than 1%, including (but not limited to) endoscopic pr ocedures, superficial procedures, cataract surgery, and excisional breast surgery: Answer: No Measure 323 - Is this imaging test performed primarily for the monitoring of an asymptomatic patient who had percutaneous coronary intervention on the visit date or within 2 years of the visit date? An swer: No Measure 324 - Is this imaging test performed primarily for the initial detection and risk assessment on an asymptomatic, low coronary heart disease patient? Low CHD risk definition = clinicians should consider the maximum number of available patient factors used to estimate risk based on [place] (A TP III criteria), typically age, gender, diabetes, smoking status, and use of blood pressure medicati on, and integrate age appropriate estimates for missing elements, such as LDL or standard blood press ure. Answer: No Reviewed by: Sienna Cruz MD, PhD on 01/21/2021 2:41 PM PDT Approved by: Sienna Cruz MD, PhD on 01/21/2021 2:41 PM PDT Station ID: [id number]
--- NOTE | 2021-01-21 14:59 | Discharge Plan ---
Discharge Plan Problem Reviewed?: Yes Disposition: Home, Self Care Condition: Stable Prescriptions: Nitroglycerin [Nitrostat] 0.4 mg SL Q5MIN PRN #30 tablet PRN Reason: Chest Pain Isosorbide Mononitrate ER [Imdur] 30 mg PO DAILY #30 tablet Diet: Regular Activity Restrictions: Activity as Tolerated Shower Restrictions: No Driving Restrictions: No Instruction Topics: Nitroglycerin Fast Act Dc Health Concerns: You presented to the emergency room with exertional chest pain that we think was angina. After speaking to your shell freezing machine operator, they felt that you are safe to go home with Imdur, sublingual nitroglycerin, and a follow-up stress test to be scheduled January 31. However you did not feel that that was soon enough and you were tearful, anxious, and felt that something was "terribly wrong". Would recently suffered infection with Covid and were slowly recovering. We did laboratory studies to show that you are not having a heart attack. Your EKG at baseline is abnormal but you stated that is not new for you. We then did a stress test and that was normal. Plan of Treatment: We had spoken to cardiology on-call and they have recommended that you go home on Imdur which is a long-acting nitroglycerin. At this time a nitrate seems to be relieving your chest pressure when you have it. However this may not be a permanent change. Please see your shell freezing machine operator in follow-up in the next 2 to 3 weeks. They may be stopping your Imdur. Otherwise there are no new change in medications. Please also see your primary care provider in follow-up for continuity of care. Care Goals: To not have any more chest pain and to go back to normal exertional status Assessment: Patient understands plan, will follow through with appointments No Smoking: If you smoke, Please STOP! Call for help. Follow-up with: Parish Garcia MD [Primary Care Provider] -
[2021-01-21 15:47] VITALS: BP 117/62
--- NOTE | 2021-01-21 18:55 | DISCHARGE SUMMARY ---
Discharge Summary Admit Date: 01/20/21 Discharge Date: 01/21/21 Discharging Provider: Reinaldo Diaz Primary Care Provider: Parish Garcia MD; [facility] Code Status: Attempt Resuscitation Condition at Discharge: Stable Discharge Disposition: 01 Home, Self Care - DIAGNOSES Discharge Diagnoses with Status of Each Condition: 1. Exertional angina 2. History of atrial fibrillation - HPI History of Present Illness: She is a 70-year-old female whose previous cardiology history is that of an ablated atrial fibrillation. She is followed by Dr. Osuna at [facility] cardiology for EPS. For years he has been trying to get her on Xarelto and she is refused. She also reluctantly takes Cardizem. He explained to her that he is doing it more for blood pressure control than rate control and she has been taking it nightly. She became ill with Covid December 11. Was symptomatic with severe cough, weakness, fatigue, anosmia but started clearing by December 15. She could really feel the difference when the fever went away. By December 21 she felt good enough that she mowed her entire back pasture. This was with a push mower in the grass was knee-high. She was exhausted at the end of it but was very satisfied at completing this job because the grass had been "staring at me in the face" the whole time she was sick. On December 23 she started feeling diaphoresis, waves of weakness, and a very fast heart rate almost like she was back in atrial fibrillation. She had several bouts of these episodes over the first part of December. She called Dr. Osuna's office and Dr. Thao bravoul ed her for follow-up in the first week of January. She was also now worried about her risk of stroke since her "atrial fibrillation may be coming back" and she acquiesced to starting Xarelto and has been on Xarelto since then. On January 13 she then started having substernal chest pain with exertion. If she rested, or stopped walking the dog, her chest pain went away. It alarmed her that she drove to [facility] where she was evaluated for [place]. Troponins and EKG were reportedly normal (this is per our ER provider telling me). The patient was supposed to get a stress test but because she was still Covid positive, they opted to discharge her and have her follow-up with an outpatient stress test with her cmm technician. She tells me that she had a stress test sometime back in 2017 that was normal. This was not her for stress test. She is never had a coronary angiogram but she recalls an MRI of the heart but she cannot remember what those results were. She only remembers the ablation for sure. For a few days she felt fine. But the chest pain is come back. Only with exertion and made worse with things such as climbing up a hill with walking her dog. Palpitations are present. No diaphoresis, no nausea, no edema, no orthopnea. No fevers or sweats. She came back to the emergency room, this time to our hospital. We evaluated her and I saw her in consultation. I had spoken to cardiology on-call, and they were comfortable with scheduling this patient with a stress test on January 31. To start her on Imdur, and the patient could be discharged. However when nurse practitioner Mehran went back to speak to the patient, the patient became tearful. She had already been called by [facility] cardiology office and they had scheduled her stress test for January 31, and she felt that January 31 was "too far away". That something was "really wrong". She did not feel safe and was very anxious about going home. As such the patient is now placed in observation for another set of cardiac enzymes and to get a stress test tomorrow morning. - Past Medical History Cardiovascular: reports: High cholesterol, Atrial fibrillation, Arrhythmia ABSORPTION OPERATOR: reports: Other () Psych: reports: Depression, Anxiety Musculoskeletal: reports: Osteoarthritis - Past Surgical History /ABSORPTION OPERATOR: reports: Hysterectomy Cardiovascular: reports: Other - CONSULTS | PROCEDURES Procedures: Call exercise stress test. She had nondiagnostic ST depression of less than 0.07 mm. Poor exercise tolerance. She reached 113% of her maximum heart rate very quickly. To stop because of shortness of breath and legs feeling weak. Nuclear medicine imaging shows her to have no fixed or reversible defects with normal ejection fraction. - HOSPITAL COURSE Hospital Course: The patient had 2 sets of troponins done. Initial one was 3.7 and the second was 5.2. Stress test was done and negative. We did order echocardiogram but that is not available today. She is encouraged to follow-up with her primary care provider and cmm technician. She states she already has an echocardiogram scheduled for February 05. She is discharged in stable condition and to continue the Imdur requested by her cmm technician. He may be able to stop that in the near future. Temperature is 36.4, pulse 63, blood pressure 117/62, respirations 18 and 96% on room air. She is a thin, very anxious female who looks her stated age. Neck is supple, lungs are clear, regular rate and rhythm with a soft systolic murmur. Benign abdomen. No leg edema. She is ambulating in her room without any assistance. - ALLERGIES Allergies/Adverse Reactions: Allergies Allergy/AdvReac Type Severity Reaction Status Date / Time amoxicillin Allergy Rash Verified 01/20/21 11:55 epinephrine Allergy Unknown Verified 01/20/21 11:57 erythromycin base Allergy Rash Verified 01/20/21 11:55 procaine [From Novocain] Allergy Unknown Verified 01/20/21 11:57 Sulfa (Sulfonamide Allergy Hives Verified 01/20/21 11:56 Antibiotics) - MEDICATIONS Home Medications: Ambulatory Orders Medication Instructions Recorded Confirmed Atorvastatin [Lipitor] 20 mg PO DAILY 01/20/21 01/20/21 Diltiazem HCl [Diltiazem 12Hr ER] 120 mg PO DAILY 01/20/21 01/20/21 Isosorbide Mononitrate ER [Imdur] 30 mg PO DAILY #30 tablet 01/20/21 Nitroglycerin [Nitrostat] 0.4 mg SL Q5MIN PRN 01/20/21 01/20/21 Nitroglycerin [Nitrostat] 0.4 mg SL Q5MIN PRN #30 tablet 01/20/21 Rivaroxaban [Xarelto] 20 mg PO DAILY 01/20/21 01/20/21 - LABS Result Diagrams: 01/20/21 11:45 01/20/21 11:45
== END 2021-01-21 16:10 | disposition home or self-care (01) ==
LOC: ED 11:10 → MS2 16:20
PROVIDERS: ADMIT Specialist; ATTEND Specialist
DX: I20.8 Other forms of angina pectoris (principal); Z79.01 Long term (current) use of anticoagulants; Z86.16 Personal history of COVID-19; Z20.822 Contact with and (suspected) exposure to COVID-19; F32.9 Major depressive disorder, single episode, unspecified; F41.9 Anxiety disorder, unspecified; Z86.79 Personal history of other diseases of the circulatory system; E78.5 Hyperlipidemia, unspecified
CPT/HCPCS: 36415; 71045; 78452; 80053; 83690; 84484; 85025; 85651; 87631; 93005; 93017; 99284; 99285; A9270; A9500; G0378; 0202U; 85379